=== PATIENT | female | born 1950 | race Caucasian/White ===

== ENCOUNTER 2018-08-17 10:21 | Emergency (ER) | payer MEDICARE, OTHER, MEDICAID ==
[~2018-08-17] VITALS: Ht 157.5 cm; Wt 77.1 kg
--- OUTSIDE RECORDS SUMMARY | ~2018-08-17 | XMS | Clinical Summary ---
Demographics + + + | Address | [address] | | | [place] [address] | + + + | Home Phone | | + + + | Preferred Language | Unknown | + + + | Marital Status | | + + + | Mandaeism Affiliation | Unknown | + + + | Race | Unknown | + + + | Ethnic Group | Unknown | + + + Author + + + | Author | [facility] [facility] | + + + | Organization | [facility] [employer] [facility] | + + + | Address | Unknown | + + + | Phone | Unavailable | + + + Support + + +---------+ + | Name | Relationship | Address | Phone | + + +---------+ + | Seymour Coreas | ECON | Unknown | | + + +---------+ + Care Team Providers + +------+ + | Care Pharmacy Technologist Name | Role | Phone | + +------+ + | Sean Stapleton DO | PP | | + +------+ + Allergies Not on File Current Medications + + +-------+---------+------+------+-------+ | Prescription | Sig. | Disp. | Refills | Star | End | Statu | | | | | | t | Date | s | | | | | | Date | | | + + +-------+---------+------+------+-------+ | levothyroxine | Take 88 mcg by mouth | | | | | Activ | | (SYNTHROID) 88 MCG | daily. | | | | | e | | tablet | | | | | | | + + +-------+---------+------+------+-------+ | lisinopril | Take 40 mg by mouth | | | | | Activ | | (ZESTRIL) 40 MG | daily. | | | | | e | | tablet | | | | | | | + + +-------+---------+------+------+-------+ | atorvastatin | Take 20 mg by mouth | | | | | Activ | | (LIPITOR) 20 MG | nightly. | | | | | e | | tablet | | | | | | | + + +-------+---------+------+------+-------+ | Calcium | Take 2 tablets by | | | | | Activ | | Carb-Cholecalciferol | mouth nightly. | | | | | e | | (CALCIUM 500 + D3) | | | | | | | | 500-600 MG-UNIT TABS | | | | | | | + + +-------+---------+------+------+-------+ | Cholecalciferol | Take 5,000 Units by | | | | | Activ | | 1000 units capsule | mouth daily. | | | | | e | + + +-------+---------+------+------+-------+ | Magnesium 500 MG | Take by mouth | | | | | Activ | | CAPS | daily. | | | | | e | + + +-------+---------+------+------+-------+ | B Complex-C (SUPER | Take 2 tablets by | | | | | Activ | | B COMPLEX PO) | mouth nightly. | | | | | e | + + +-------+---------+------+------+-------+ | Probiotic Product | Take by mouth | | | | | Activ | | (PROBIOTIC-10 PO) | nightly. | | | | | e | + + +-------+---------+------+------+-------+ | Garlic 1000 MG | Take 2,000 mg by | | | | | Activ | | CAPS | mouth nightly. | | | | | e | + + +-------+---------+------+------+-------+ | Coconut Oil 1000 | Take 2 tablets by | | | | | Activ | | MG CAPS | mouth nightly. | | | | | e | + + +-------+---------+------+------+-------+ | Coenzyme Q10 | Take 1,000 mg by | | | | | Activ | | (COQ10 PO) | mouth nightly. | | | | | e | + + +-------+---------+------+------+-------+ Active Problems + + + | Problem | Noted Date | + + + | PVC (premature ventricular contraction) | 05/22/2017 | + + + | Papillary thyroid carcinoma (HCC) | 07/09/2014 | + + + | S/P thyroidectomy | 06/09/2014 | + + + | Controlled type 2 diabetes mellitus without complication, without | 08/02/2011 | | long-term current use of insulin (HCC) | | + + + + + | Overview: Overview: | | On lantus 20 Units q hs | | Using sliding scale of humalog during the day. | + + + + + | Hyperlipidemia with target low density lipoprotein (LDL) | 08/02/2011 | | cholesterol less than 100 mg/dL | | + + + | Essential hypertension, benign | 04/23/2010 | + + + Family History + + +------+ + | Medical History | Relation | Name | Comments | + + +------+ + | Diabetes | Brother | | | + + +------+ + | Cancer | Mother | | colon | + + +------+ + | Diabetes | Mother | | | + + +------+ + | Emphysema | Mother | | | + + +------+ + | Diabetes | Sister | | | + + +------+ + + +------+--------+ + | Relation | Name | Status | Comments | + +------+--------+ + | Brother | | | | + +------+--------+ + | Mother | | | | + +------+--------+ + | Sister | | | | + +------+--------+ + Social History + +-------+ +--------+------+ | Tobacco Use | Types | Packs/Day | Years | Date | | | | | Used | | + +-------+ +--------+------+ | Never Smoker | | | | | + +-------+ +--------+------+ + +---+---+---+ | Smokeless Tobacco: | | | | | Never Used | | | | + +---+---+---+ + + +---------+ + | Alcohol Use | Drinks/We | oz/Week | Comments | | | ek | | | + + +---------+ + | No | | | | + + +---------+ + + + + | Sex Assigned at | Date Recorded | | | | + + + | Not on file | | + + + Last Filed Vital Signs + + + + | Vital Sign | Reading | Time Taken | + + + + | Blood Pressure | 118/70 | 05/22/2017 12:54 PM PST | + + + + | Pulse | 87 | 05/22/2017 12:54 PM PST | + + + + | Temperature | - | - | + + + + | Respiratory Rate | - | - | + + + + | Oxygen Saturation | 99% | 05/22/2017 12:54 PM PST | + + + + | Inhaled Oxygen | - | - | | Concentration | | | + + + + | Weight | 78.6 kg (173 lb 3.2 | 05/22/2017 12:54 PM PST | | | oz) | | + + + + | Height | 157.5 cm (5' 2") | 05/22/2017 12:54 PM PST | + + + + | Body Mass Index | 31.68 | 05/22/2017 12:54 PM PST | + + + + Plan of Treatment + + + + + | Health Maintenance | Due Date | Last Done | Comments | + + + + + | Diabetic Eye Exam | | | | | | 2 | | | + + + + + | Diabetic Foot Exam | | | | | | 2 | | | + + + + + | Hemoglobin A1c | | | | | | 2 | | | + + + + + | Microalbumin | | | | | Screening | 2 | | | + + + + + | Vaccine: | | | | | Dtap/Tdap/Td (1 - | 1 | | | | Tdap) | | | | + + + + + | Breast Cancer | | | | | Screening | 2 | | | | (Mammogram) | | | | + + + + + | Colon Cancer | | | | | Screening | 2 | | | | (Colonoscopy) | | | | + + + + + | Vaccine: Zoster (1 | | | | | of 2) | 2 | | | + + + + + | DEXA SCAN SCREENING | | | | | | 7 | | | + + + + + | Vaccine: | | | | | Pneumococcal 65+ | 7 | | | | High/Highest Risk (1 | | | | | of 2 - PCV13) | | | | + + + + + | Vaccine: Influenza | | | | | (#1) | 8 | | | + + + + + Results Not on filefrom Last 3 Months Insurance + +--------+ +------+-------+ + | Payer | Benefi | Subscriber | Type | Phone | Address | | | t Plan | ID | | | | | | / | | | | | | | Group | | | | | + +--------+ +------+-------+ + | MEDICARE | MEDICA | [id number] | | | [address] | | | RE | | | | [place] [address] | | | IP-OP | | | | | + +--------+ +------+-------+ + | [employer] [place] | MUTUAL | [id number] | | | | | | [place] | | | | | | | [place] | | | | | + +--------+ +------+-------+ + + +--------+ +--------+ + + | Guarantor Name | Accoun | Relation to | Date | Phone | Billing Address | | | t Type | Patient | of | | | | | | | | | | + +--------+ +--------+ + + | MYA YUSUF | Person | Self [birth year] | Home: | [address] | | | al/Fam | | 1951 | [phone] [place] | | | [place]ena | | | [phone] | [address] | + +--------+ +--------+ + +
--- OUTSIDE RECORDS SUMMARY | ~2018-08-17 | XMS | Clinical Summary ---
Demographics + + + | Address | [address] | | | [place] [address] | + + + | Home Phone | | + + + | Preferred Language | Unknown | + + + | Marital Status | Single | + + + | Scientologist Affiliation | Unknown | + + + | Race | White | + + + | Ethnic Group | Not or | + + + Author + + + | Author | [facility] | + + + | Organization | [facility] | + + + | Address | Unknown | + + + | Phone | Unavailable | + + + Support + + + + + | Name | Relationship | Address | Phone | + + + + + | ABDIEL QUILES | ECON | UNKNOWN | | | | | [place] [address] | | + + + + + Care Team Providers + +------+ + | Care Oil Well Gun Perforator Operator Name | Role | Phone | + +------+ + | Sean Stapleton DO | PP | | + +------+ + Source Comments SHERLYN is fully live on both [facility] Ambulatory and [facility] InPatient[facility] Allergies No Known Allergies Current Medications + + +--------+---------+------+------+-------+ | Prescription | Sig. | Disp. | Refills | Star | End | Statu | | | | | | t | Date | s | | | | | | Date | | | + + +--------+---------+------+------+-------+ | lisinopril 20 mg | TAKE ONE TABLET BY | | | 01/0 | | Activ | | oral tablet | MOUTH 2 TIMES DAILY | | | 02/06 | | e | | | FOR HYPERTENSION | | | 15 | | | + + +--------+---------+------+------+-------+ | Insulin Glargine | Inject under the | | | / | | Activ | | 100 unit/mL (3 mL) | skin (SUBC). | | | 6/20 | | e | | subcutaneous insulin | | | | 15 | | | | pen | | | | | | | + + +--------+---------+------+------+-------+ | Insulin Lispro, | Inject tid per | | | 05/20 | | Activ | | Human, 100 unit/mL | sliding scale. | | | 6/20 | | e | | subcutaneous insulin | | | | 15 | | | | pen | | | | | | | + + +--------+---------+------+------+-------+ | | Take by mouth. | | | 05/20 | | Activ | | HYDROcodone-acetamin | | | | 4/20 | | e | | ophen 5-325 mg oral | | | | 15 | | | | tablet | | | | | | | + + +--------+---------+------+------+-------+ | Lancets misc | by Does not apply | | | 12/3 | | Activ | | | route. | | | 06/08 | | e | | | | | | 14 | | | + + +--------+---------+------+------+-------+ | Blood Sugar | by Does not apply | | | 05/20 | | Activ | | Diagnostic (TRUETEST | route. | | | 11/06 | | e | | TEST STRIPS) strip | | | | 15 | | | + + +--------+---------+------+------+-------+ | Insulin [place], | 4 (four) times | | | 05/20 | | Activ | | Disposable, (SURE | daily. Use as | | | 11/06 | | e | | COMFORT PEN NEEDLE) | directed. | | | 15 | | | | 31 X 5/16 " needle | | | | | | | + + +--------+---------+------+------+-------+ | diphenhydrAMINE 25 | Take by mouth. | | | /2 | | Activ | | mg oral capsule | | | | 020 | | e | | | | | | 15 | | | + + +--------+---------+------+------+-------+ | VITAMIN B COMPLEX | Take by mouth. | | | | | Activ | | (B COMPLEX VITAMINS | | | | | | e | | ORAL) | | | | | | | + + +--------+---------+------+------+-------+ | CLONAZEPAM ORAL | Take by mouth. | | | | | Activ | | | | | | | | e | + + +--------+---------+------+------+-------+ | BECLOMETHASONE | Inhale. | | | | | Activ | | DIPROPIONATE (QVAR | | | | | | e | | INHL) | | | | | | | + + +--------+---------+------+------+-------+ | ALBUTEROL INHL | Inhale. | | | | | Activ | | | | | | | | e | + + +--------+---------+------+------+-------+ | benzonatate 100 mg | | | | 10/2 | | Activ | | oral capsule | | | | 0/20 | | e | | | | | | 15 | | | + + +--------+---------+------+------+-------+ | levothyroxine 88 | Take 1 tablet by | 90 | 3 | 04/0 | | Activ | | mcg oral tablet | mouth once daily. | tablet | | 3/20 | | e | | | | | | 17 | | | + + +--------+---------+------+------+-------+ | atorvastatin | Take by mouth. | | | | | Activ | | calcium | | | | | | e | | (ATORVASTATIN ORAL) | | | | | | | + + +--------+---------+------+------+-------+ Active Problems + + + | Problem | Noted Date | + + + | Post-surgical hypothyroidism | 03/25/2015 | + + + | Choking sensation | 03/25/2015 | + + + | Osteoporosis | 03/25/2015 | + + + | Vitamin D deficiency | 03/25/2015 | + + + | Papillary thyroid carcinoma (HCC) | 07/09/2014 | + + + Family History + + +------+ + | Medical History | Relation | Name | Comments | + + +------+ + | Stroke | Father | | | + + +------+ + | Cancer | Maternal | | Uterine | | | Grandmoth | | | | | er | | | + + +------+ + | Cancer | Mother | | Colon | + + +------+ + | Heart Disease | Mother | | | + + +------+ + | Heart Disease | Sister | | | + + +------+ + | Thyroid | Neg Hx | | | + + +------+ + + +------+--------+ + | Relation | Name | Status | Comments | + +------+--------+ + | Father | | | | + +------+--------+ + | Maternal Grandmother | | | | + +------+--------+ + | Mother | | | | + +------+--------+ + | Sister | | | | + +------+--------+ + Social History + +-------+ +--------+------+ | Tobacco Use | Types | Packs/Day | Years | Date | | | | | Used | | + +-------+ +--------+------+ | Former Smoker | | | | | + +-------+ +--------+------+ + +---+---+---+ | Smokeless Tobacco: | | | | | Never Used | | | | + +---+---+---+ + + | Comments: Smoked for one week | + + + + +---------+ + | Alcohol Use [...] + + + | Blood Pressure | 125/51 | 10/17/2017 2:51 PM PDT | + + + + | Pulse | 129 | 10/17/2017 2:51 PM PDT | + + + + | Temperature | - | - | + + + + | Respiratory Rate | - | - | + + + + | Oxygen Saturation | - | - | + + + + | Inhaled Oxygen | - | - | | Concentration | | | + + + + | Weight | 78.5 kg (173 lb) | 10/17/2017 2:51 PM PDT | + + + + | Height | 157.5 cm (5' 2") | 09/29/2015 2:33 PM PDT | + + + + | Body Mass Index | 31.64 | 10/17/2017 2:51 PM PDT | + + + + Plan of Treatment +--------+ + + + + | Date | Type | Specialty | Care Team | Description | +--------+ + + + + | 10/23/ | Appointment | | Beverly Anders MD | | | 2019 | | | [address] | | | | | | [place], | | | | | | [place] [address] | | | | | | [phone] | | | | | | | | +--------+ + + + + | 10/23/ | Office | | Beverly Anders MD | | | 2019 | Visit | | [address] | | | | | | [place], | | | | | | [place] [address] | | | | | | [phone] | | | | | | | | +--------+ + + + + + + + + + | Health Maintenance | Due Date | Last Done | Comments | + + + + + | Pneumococcal (Adult) | | | | | (1 of 2 - PCV13) | 7 | | | + + + + + | Influenza (Flu) | | | | | vaccination (#1) | 8 | | | + + + + + Results Not on filefrom Last 3 Months Insurance + +--------+ +--------+ + + | Payer | Benefi | Subscriber | Type | Phone | Address | | | t Plan | ID | | | | | | / | | | | | | | Group | | | | | + +--------+ +--------+ + + | MEDICARE | MEDICA | xxxxxxxxxxx | Medica | [phone]- | [id number] | | | RE [place] & | | re | [phone] | [place] [address] | | | B | | | | | + +--------+ +--------+ + + | [employer] [place] | MUTUAL | [phone] | Indemn | [phone]- | [employer] [place] | | MEDICARE SUPPL | OF | | ity | [address] | [place] | | | [place] | | | | [phone] | | | MEDICA | | | | | | | RE | | | | | | | SUPPL | | | | | + +--------+ +--------+ + + + +--------+ +--------+ + + | Guarantor Name | Accoun | Relation to | Date | Phone | Billing Address | | | t Type | Patient | of | | | | | | | | | | + +--------+ +--------+ + + | MYA YUSUF | Person | Self | [birth year] | Home: | [address] | | | al/Fam | | 1951 | [phone] | [place] | | | [place] | | | [phone] | [phone] | + +--------+ +--------+ + +
--- OUTSIDE RECORDS SUMMARY | ~2018-08-17 | XMS | Clinical Summary ---
Demographics + + + | Address | [address] | | | [place] [address] | + + + | Home Phone | | + + + | Preferred Language | Unknown | + + + | Marital Status | | + + + | Episcopalian Affiliation | Unknown | + + + | Race | Unknown | + + + | Ethnic Group | Unknown | + + + Author + + + | Author | [facility] | + + + | Organization | [facility] | + + + | Address | Unknown | + + + | Phone | Unavailable | + + + Support + + +---------+ + | Name | Relationship | Address | Phone | + + +---------+ + | Seymour Coreas | ECON | Unknown | | + + +---------+ + Care Team Providers + +------+ + | Care Ice Cream Mixer Name | Role | Phone | + [...] +------+-------+ + | MEDICARE | MEDICA | [id number] | | | [address] | | | RE | | | | [place] [address] | | | IP-OP | | | | | + +--------+ +------+-------+ + | [employer]UAL [employer] [place] | MUTUAL | [id number] | | | | | | [place] | | | | | | | [place] | | | | | + +--------+ [...] | | | [place] | | | [address] | [address] | + +--------+ +--------+ + +
--- OUTSIDE RECORDS SUMMARY | ~2018-08-17 | XMS | Clinical Summary ---
Demographics + + + | Address | [address] | | | [place] [address] | + + + | Home Phone | | + + + | Preferred Language | Unknown | + + + | Marital Status | Single | + + + | Baptism Affiliation | Unknown | + + + [...] | | | | | [place] [address] | | + + + + + Care Team Providers + +------+ + | Care Rodeo Performer Name | Role | Phone | + +------+ + | Sean Stapleton DO | PP | | + +------+ + Source Comments SHERLYN is fully live on both [facility] Ambulatory and [facility] InPatient.[facility] Allergies No Known Allergies Current Medications + [...] | | + + +--------+---------+------+------+-------+ | Insulin [place], | 4 (four) times | | | [...] | | | | | [place], | | | | | | [place] [address] | | | | | | [phone] | | | | | | | | +--------+ + + + + | 10/23/ | Office | | Beverly Anders MD | | | 2019 | Visit | | [address] | | | | | | [place], | | | | | | [place] [address] | | | | | | [phone] | | | | | | | [...] | re | [phone] | [place] [address] | | | B | | | | | + +--------+ +--------+ + + | [employer] [place] | MUTUAL | [phone] | Indemn | +17- | [employer] [place] | | MEDICARE SUPPL | OF | | ity | [address] | [address] | | | [place] | | | | [phone] | | | MEDICA | | | [...] | | al/Fam | | 1951 | [phone] | [place] | | | teena | | | [address] | [phone] | + +--------+ +--------+ + +
[~2018-08-17 10:21] MED LIST: ACETAMINOPHEN-1 EAC1 PO; ATORVASTATIN CA20 MG PO; CEPHALEXIN500 MG PO; LEVOTHYROXINE88 MCG PO; LISINOPRIL40 MG PO; NOVOLOG FL100 UNIT/1 SUB-Q
[2018-08-17] MEDS ORDERED: ZOFRAN4 MG PO (12:29)
--- NOTE | 2018-08-17 19:08 | EKG ---
[facility] [address] [facility] [place], [place] [address] Signed Sinus rhythm with premature atrial complexes Otherwise normal ECG No previous ECGs available Confirmed by WENDY ROCA DO ([id number]) on 08/17/2018 7:08:28 PM Electronically Signed By: WENDY ROCA DO 08/17/18 1908 PATIENT NAME: MYA YUSUF Electrocardiogram DATE OF : 52 PHYSICIAN: WENDY ROCA DO REPORT #: [id number] REPORT IS CONFIDENTIAL AND NOT TO BE RELEASED WITHOUT AUTHORIZATION
== END 2018-08-17 13:40 | disposition home or self-care (01) ==
LOC: ED 10:21
DX: K52.9 Noninfective gastroenteritis and colitis, unspecified (principal); E11.9 Type 2 diabetes mellitus without complications; Z88.8 Allergy status to other drugs, medicaments and biological substances; Z79.4 Long term (current) use of insulin; Z79.899 Other long term (current) drug therapy
CPT/HCPCS: 36415; 80053; 81001; 83690; 84484; 85025; 93005; 93010; 96374; 99284-25; J2405; J7030

== ENCOUNTER 2020-09-16 06:00 | Day surgery (SDC) | payer MEDICARE, OTHER, MEDICAID ==
[~2020-09-16] VITALS: Ht 157.5 cm; Wt 66.5 kg
[~2020-09-16 06:00] MED LIST changes: +GLUCOPHAGE500 MG PO; +IBU800 MG PO; +TRAMADOL HCL50 MG PO; +ZETIA10 MG PO; +ZOFRAN4 MG PO
[2020-09-16] MEDS ORDERED: TRAMADOL HCL50 MG PO (08:14)
--- NOTE | 2020-09-16 08:21 | NUR ---
09/16/20 0821 Genet Serrano 0814- PT ARRIVES TO PACU AROUSABLE TO VOICE. PT DOES NOT FOLLOW COMMANDS OR ANSWER QUESTIONS AT THIS TIME. NPA LEFT IN PLACE. RESP EVEN AND UNLABORED. OXYGEN SAT HIGH 90'S TO 100% ON 10L VIA MASK.
--- NOTE | 2020-09-16 08:33 | NUR ---
PT ALERT, ORIENTED AND IS READY FOR SURGERY. ALL QUESTIONS ASKED ANSWERED, PT REQUESTED PRAYER AND A WARM BLANKET. ESEQUIEL GARRISON PROVIDED BLANKET. WILL FOLLOW
--- NOTE | 2020-09-19 06:58 | OR ---
[facility] [address] [place], [place] [address] Signed DATE OF OPERATION: 09/16/2020 SURGEON: Terrell Esparza MD PREOPERATIVE DIAGNOSIS: Left carpal tunnel syndrome. POSTOPERATIVE DIAGNOSIS: Left carpal tunnel syndrome. PROCEDURE PERFORMED: Left carpal tunnel release. LIMO DRIVER: None. ANESTHESIA: [place] block. TOURNIQUET TIME: 20 minutes. BRIEF HISTORY: Mya is a 70-year-old female with bilateral carpal tunnel. She had undergone successful right release, wished to proceed with the left. Risks and benefits of operative treatment were discussed with her and she elected to proceed. DESCRIPTION OF PROCEDURE: Once consent was obtained, she was taken to the operating room. After adequate anesthesia, she was placed on operating table. All downside pressure points were well padded. The arm was prepped and draped in a standard sterile fashion. A 1.5 cm incision was placed through the distal wrist crease, carried through the skin and subcutaneous tissue. The palmaris longus was identified, retracted and protected. The transverse carpal ligament was identified under loupe magnification and dissected free of overlying soft tissue. It was then released proximally a cm and half distally to the distal extent. This was palpated using a [place] and found to be completely released. The wound was then copiously irrigated with antibiotic solution, closed with 3-0 nylon and injected with 8 mL 0.25% plain Marcaine. The wounds were dressed with Adaptic, gauze and Sincere. She tolerated the procedure well. All sponge, needle, and instrument counts were Electronically Signed By: TERRELL ESPARZA MD 09/19/20 0658 PATIENT NAME: MYA YUSUF OPERATIVE REPORT DATE OF : 52 REPORT #: [id number] PHYSICIAN: TERRELL ESPARZA MD PCP: AMBERLY OBRIEN MD REPORT IS CONFIDENTIAL AND NOT TO BE RELEASED WITHOUT AUTHORIZATION [address], [place] [address] Signed correct. Terrell Esparza MD BA/MODL /[id number] Copies: ~ Electronically Signed By: TERRELL ESPARZA MD 09/19/20 0658 PATIENT NAME: MYA YUSUF OPERATIVE REPORT DATE OF : 52 REPORT #: [id number] PHYSICIAN: TERRELL ESPARZA MD PCP: AMBERLY OBRIEN MD REPORT IS CONFIDENTIAL AND NOT TO BE RELEASED WITHOUT AUTHORIZATION
== END 2020-09-16 09:14 | disposition home or self-care (01) ==
LOC: DS 06:00
PROVIDERS: ATTEND Specialist
PROC: 01N50ZZ Release Median Nerve, Open Approach (ICD-10-PCS; principal; 2020-09-16 08:30)
DX: G56.02 Carpal tunnel syndrome, left upper limb (principal); J45.909 Unspecified asthma, uncomplicated; E11.9 Type 2 diabetes mellitus without complications; E89.0 Postprocedural hypothyroidism; M19.09 Primary osteoarthritis, other specified site; K21.9 Gastro-esophageal reflux disease without esophagitis; I10 Essential (primary) hypertension; Z88.8 Allergy status to other drugs, medicaments and biological substances; Z85.850 Personal history of malignant neoplasm of thyroid; Z86.14 Personal history of Methicillin resistant Staphylococcus aureus infection; Z77.22 Contact with and (suspected) exposure to environmental tobacco smoke (acute) (chronic); Z79.84 Long term (current) use of oral hypoglycemic drugs
CPT/HCPCS: J0690; J1100; J1885; J2250; J2405; J2765; J3010; J7121

== ENCOUNTER 2021-06-24 20:18 | Emergency (ER) | payer MEDICARE, OTHER, MEDICAID ==
[~2021-06-24] VITALS: Ht 157.5 cm; Wt 65.8 kg
[2021-06-24] MEDS ORDERED: MECLIZINE HCL12.5 MG PO (22:31)
== END 2021-06-24 22:50 | disposition home or self-care (01) ==
LOC: ED 20:18
DX: E87.1 Hypo-osmolality and hyponatremia (principal); E03.9 Hypothyroidism, unspecified; E11.9 Type 2 diabetes mellitus without complications; I10 Essential (primary) hypertension; Z88.8 Allergy status to other drugs, medicaments and biological substances; Z79.84 Long term (current) use of oral hypoglycemic drugs; Z79.899 Other long term (current) drug therapy
CPT/HCPCS: 36415; 70450; 80048; 81001; 85025; 99284-25; J7030

== ENCOUNTER 2021-09-08 05:32 | Day surgery (SDC) | payer MEDICARE, OTHER, MEDICAID ==
[~2021-09-08] VITALS: Ht 157.5 cm; Wt 62.3 kg
[~2021-09-08 05:32] MED LIST changes: +MECLIZINE HCL12.5 MG PO; +MULTI VITAMIN1 EACH PO
[2021-09-08] MEDS ORDERED: HYDROCODON-ACE1 EA11 PO (08:12)
[2021-09-08] MEDS ORDERED: CELECOXIB200 MG PO (08:12)
--- NOTE | 2021-09-08 08:15 | NUR ---
09/08/21 0815 Genet Serrano 0804- PT ARRIVES TO PACU REACTIVE TO STIMULI. PT IS VERY DROWSY AND FALLS BACK TO SLEEP WHEN NOT BEING STIMULATED. RESP EVEN AND UNLABORED. OXYGEN SAT HIGH 90'S TO 100% ON 6L VIA MASK. 0806- ICE PACK APPLIED TO PT'S LEFT FOREARM. 0812- PT REPOSITIONED IN BED AND HEAD OF BED ELEVATED. PT REPORTS NO PAIN OR NAUSEA. OXYGEN TITRATED OFF.
--- NOTE | 2021-09-08 08:57 | NUR ---
5235 PT BACK TO ROOM FROM PACU ALERT AND AWAKE SHOSHANA PAIN OR NAUSEA, PT TAKING SIPS OF WATER TOLERATES WELL. ANDERSON OLMSTEAD PLACED BETWEEN WARM BLANKETS CALL LIGHT WITHIN REACH. SHE REPORTS SHE IS SLEEPY ADVISED HER THAT SHE CAN SLEEP AND REST.
--- NOTE | 2021-09-08 09:03 | NUR ---
0900 PT REPORTS LT HAND IS STILL NUMB SHE DOES HAVE MINIMAL MOVEMENT WITH FINGERS ON LT HAND. HAND WARM AND PINK CAP REFILL LESS ONE SECOND. SHE DENIES PAIN.
--- NOTE | 2021-09-08 09:50 | NUR ---
PT RESTING COMFORABLY DENIES PAIN AND NAUSEA, DECLINE ANYTHING TO EAT BUT IS TAKING SIPS OF WATER TOLERATES WELL. HER LT HAND IS STILL NUMB FROM BLOCK. SHE IS NOT ABLE TO MOVE FINGERS, ICE IS PLACED AT LT ELBOW OVER NOELLE WRAP. FINGERS ON LT HAND ARE PINK AND WARM CAP REFILL IS LESS THAN ONE SECOND.
--- NOTE | 2021-09-08 10:18 | NUR ---
LPT TAKEN TO [place], FAMILY IN RM. FEEL CONFIDENT, WILL REMAIN FOR DC. GAVE ENCOURAGEMENT. WILL FOLLOW
--- NOTE | 2021-09-08 10:50 | NUR ---
1000 PT AMBULATED TO BATHROOM WITHOUT ASSIST. SHE WAS ABLE TO VOID, SHE REPORTS READINESS TO GO HOME, IV DC'D TIP IN TACT DISCHARGE INSTRUCTIONS GIVEN TO PT, SHE VOICED UNDERSTANDING. PT IS NOT ABLE TO MOVE FINGERS ON LT HAND DUE TO BLOCK, FINGERS ON LT HAND PINK AND WARM, CAP REFILL LESS THAN ONE SECOND.
--- NOTE | 2021-09-11 08:45 | OR ---
[facility] [address], [place] [address] Signed DATE OF OPERATION: 09/08/2021 SURGEON: Terrell Esparza MD PREOPERATIVE DIAGNOSIS: Ulnar neuritis, left. POSTOPERATIVE DIAGNOSIS: Ulnar neuritis, left. PROCEDURE PERFORMED: Left ulnar transposition, subcutaneous. FILM EDITOR SUPERVISOR: None. ANESTHESIA: General. BLOOD LOSS: None. TOURNIQUET TIME: 31 minutes. BRIEF HISTORY: Mya is a 71-year-old female with progressive worsening ulnar neuritis. She had numbness and tingling in the lateral aspect of her hand. Risks, benefits, and alternatives of operative treatment were discussed with her and she elected to proceed. Once consent was obtained, she was taken to the operating room. After adequate anesthesia, she was placed on operating room table with a hand table. The arm was prepped and draped in a standard sterile fashion. Sterile tourniquet was placed in the proximal arm. The arm was then exsanguinated using Esmarch bandage. Tourniquet inflated to 200 mmHg. A 3-inch incision was centered over the medial epicondyle. This was carried through skin and subcutaneous tissue and directly down onto the cubital tunnel. The cubital tunnel was opened on its proximal side carefully under loupe magnification. Identification of the ulnar nerve was then made. The tunnel was completely unroofed while carefully protecting the nerve. The nerve was then dissected free of its soft tissue bed. A vessel loop was placed around it to provide traction. Careful dissection of nerve on its underneath side to remove the vascular plexus was Electronically Signed By: TERRELL ESPARZA MD 09/11/21 0845 PATIENT NAME: MYA YUSUF OPERATIVE REPORT DATE OF : 52 REPORT #: [id number] PHYSICIAN: TERRELL ESPARZA MD PCP: AMBERLY OBRIEN MD REPORT IS CONFIDENTIAL AND NOT TO BE RELEASED WITHOUT AUTHORIZATION [facility] [address], [place] [address] Signed undertaken. The dissection was taken proximally 2 inches and distally 2 inches. It was then transposed anteriorly and the intermuscular septum was excised to allow a tension-free transposition. Once it was placed up into the anterior subcutaneous tissue space, the fascial sling was then developed and sutured around the nerve back to the subcutaneous skin creating a solid fascial sling. The nerve was freely moving at the end of this portion of the procedure. The subcutaneous tissue was then tacked down to the epicondyle and the wound was copiously irrigated. The space was then closed using 3-0 Vicryl. The subcutaneous tissue was closed with 3-0 Monocryl and the skin was closed with 3-0 Stratafix. The wound was then sealed with Dermabond and dressed with an Allevyn dressing, sterile cast padding, and a posterior splint. She tolerated the procedure well. All sponge, needle, and instrument counts were correct. Terrell Esparza MD BA/KRISTY /[id number] Copies: ~ Electronically Signed By: TERRELL ESPARZA MD 09/11/21 0845 PATIENT NAME: PARAMJITMYAAYE GAYY OPERATIVE REPORT DATE OF : 52 REPORT #: [id number] PHYSICIAN: TERRELL ESPARZA MD PCP: AMBERLY OBRIEN MD REPORT IS CONFIDENTIAL AND NOT TO BE RELEASED WITHOUT AUTHORIZATION
== END 2021-09-08 10:30 | disposition home or self-care (01) ==
LOC: DS 05:32
PROVIDERS: ATTEND Specialist
PROC: 01X40Z4 Transfer Ulnar Nerve to Ulnar Nerve, Open Approach (ICD-10-PCS; principal; 2021-09-08 07:00)
DX: G56.22 Lesion of ulnar nerve, left upper limb (principal); Z88.8 Allergy status to other drugs, medicaments and biological substances; I10 Essential (primary) hypertension; E03.9 Hypothyroidism, unspecified; E11.9 Type 2 diabetes mellitus without complications
CPT/HCPCS: 01710; 64417; 76942; J0690; J1100; J2001; J2250; J2405; J2704; J2795; J7121

== ENCOUNTER 2021-09-08 19:10 | Emergency (ER) | payer MEDICARE, OTHER, MEDICAID ==
[~2021-09-08] VITALS: Ht 157.5 cm; Wt 67.7 kg
[~2021-09-08 19:10] MED LIST changes: +CELECOXIB200 MG PO; +HYDROCODON-ACE1 EA11 PO
== END 2021-09-08 20:25 | disposition home or self-care (01) ==
LOC: ED 19:10
DX: R20.2 Paresthesia of skin (principal); G58.8 Other specified mononeuropathies; E03.9 Hypothyroidism, unspecified; E11.9 Type 2 diabetes mellitus without complications; I10 Essential (primary) hypertension; Z88.8 Allergy status to other drugs, medicaments and biological substances; Z79.899 Other long term (current) drug therapy; Z79.84 Long term (current) use of oral hypoglycemic drugs
CPT/HCPCS: 99283

== ENCOUNTER 2022-03-21 05:45 | Day surgery (SDC) | payer MEDICARE, OTHER ==
--- NOTE | 2022-03-15 09:48 | NUR ---
WAS TESTED ON 02/12/22 IN COVID SCREENING AND IT WAS POSTIVE, THEN SHE WENT TO PCP AND RETESTED AND WAS NEGATIVE FOR COVID. HAD FOOT SURGERY AND STICHES REMOVED AND DOING WELL AT THIS TIME. NO CHANGES INHER MEDICATIONS AT THIS TIME.
[~2022-03-21] VITALS: Ht 157.5 cm; Wt 66.4 kg
[~2022-03-21 05:45] MED LIST changes: +VENTOLIN HFA18 GM INH
[2022-03-21] MEDS ORDERED: IBU800 MG PO (06:15)
[2022-03-21] MEDS ORDERED: ONDANSETRON ODT8 MG PO (06:16)
[2022-03-21] MEDS ORDERED: FLOVENT DISKUS50 MCG INH (06:17)
--- NOTE | 2022-03-21 07:59 | NUR ---
03/21/22 0759 Lucía Sainz PATIENT IS AWAKE AND TALKING WITH ME. SHE IS TALKING ABOUT "GOING BACK TO WORK." PLAN OF CARE IS COMMUNICATED AND PATIENT VERBALIZES UNDERSTANDING. BLOOD PRESSURE IS SOFT. FLUID IS INCREASED TO BOLUS. WILL CONTINUE TO MONITOR.
--- NOTE | 2022-03-21 10:51 | NUR ---
PT IS ALERT, ORIENTED AND SEEMS VERY PREPARED FOR HER SCOPE. SHE HAS HAD A PREVIOUS SCOPE. ALL QUESTIONS ASKED ANSWERED. PT REQUESTED PRAYER, SHARED THAT SHE HAS GREAT ELEAZAR AND FEELS BLESSED. WILL FOLLOW NEEDED
--- NOTE | 2022-03-21 16:55 | OR ---
[facility] [address], [place] [address] Signed DATE OF OPERATION: 03/21/2022 SURGEON: Vega Powell MD PREOPERATIVE DIAGNOSES: 1. Personal history of colonic polyps in 2017 at age 66. 2. Mother with colon cancer in her 80s. POSTOPERATIVE DIAGNOSIS: Moderately poor bowel prep. PROCEDURE: Colonoscopy without biopsy. ESTIMATED BLOOD LOSS: None. INDICATIONS: Mya is a 71-year-old female, asked to see me for followup colonoscopy. We know her mother had colon cancer in her 80s. She reminded me of her postoperative nausea and vomiting. We helped her in 2017 at the age of 66 for some rectal bleeding. She had a tubulovillous adenomatous polyp removed at 15 cm. She also had a tubular adenoma in the distal right colon. In the meantime, her has . 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 She therefore asked to take a taxi or usually comes with her friend. She has no lower GI complaints. She talks about severe asthma requiring stem-cell treatment. Nevertheless, she did have both carpal tunnel surgeries and her ulnar nerve transposition with Dr. Esparza in the last year. She seemed to have done well. In the office, I had given her a pamphlet on colonoscopy. We discussed the nature of the test along with the risks including, but not limited to gas bloating, crampy abdominal pain, bleeding, perforation requiring surgery and missed diagnosis. We also reviewed the need for monitored anesthesia care given her advanced medical issues and her very frail nature. In fact, her functional status has declined significantly since I have seen her last. She had expressed understanding and wished to proceed. PROCEDURE NOTE: Mya was taken into our endoscopy suite and placed in the left lateral decubitus position. She was given monitored anesthesia care with propofol per our nurse senior storage engineer. A digital rectal exam was performed and this was unremarkable. She had good sphincter tone. Really no external hemorrhoids. No masses. The adult colonoscope had been introduced and advanced under direct visualization up into the cecum itself. Electronically Signed By: VEGA POWELL MD 03/21/22 1655 PATIENT NAME: MYA YUSUF OPERATIVE REPORT DATE OF : 52 REPORT #: [id number] PHYSICIAN: VEGA POWELL MD PCP: AMBERLY OBRIEN MD REPORT IS CONFIDENTIAL AND NOT TO BE RELEASED WITHOUT AUTHORIZATION [facility] [address], [place] [address] Signed It took a few minutes to get through the rectum, sigmoid colon and left colon because of her moderately poor bowel prep. There was too much particulate stool matter to suction through the scope. In that regard, she would need additional bowel prep in the future. Once we got into the proximal left colon above, it was much better. We could easily see the appendiceal orifice and ileocecal valve. The scope was then slowly withdrawn. We saw no pathology throughout her entire colon or rectum. It was difficult to see the anus on retroflexion of the scope. We did see some internal hemorrhoid columns as we withdrew the scope. After this, the gas had been suctioned out. Mya was taken into the recovery room in stable condition. Overall, she tolerated the procedure quite well. RECOMMENDATIONS: Mya is welcome to return in 5 years due to her family and personal history. However, once she is within 8 to 12 years of she can discontinue her endoscopies. Vega Powell MD ALB/MODL /[id number] cc: MD Vega Andersen MD Copies: AMBERLY OBRIEN DMD, ANDREW L MD ~ Electronically Signed By: VEGA POWELL MD 03/21/22 1655 PATIENT NAME: MYA YUSUF OPERATIVE REPORT DATE OF : 52 REPORT #: [id number] PHYSICIAN: VEGA POWELL MD PCP: AMBERLY OBRIEN MD REPORT IS CONFIDENTIAL AND NOT TO BE RELEASED WITHOUT AUTHORIZATION
== END 2022-03-21 08:25 | disposition home or self-care (01) ==
LOC: OPS 05:45 → DS 05:45 → OPS 07:30
PROVIDERS: ATTEND Colon & Rectal Surgery
PROC: 0DJD8ZZ Inspection of Lower Intestinal Tract, Via Natural or Artificial Opening Endoscopic (ICD-10-PCS; principal; 2022-03-21 07:30)
DX: Z09 Encounter for follow-up examination after completed treatment for conditions other than malignant neoplasm (principal); K64.8 Other hemorrhoids; E89.0 Postprocedural hypothyroidism; E11.319 Type 2 diabetes mellitus with unspecified diabetic retinopathy without macular edema; E11.22 Type 2 diabetes mellitus with diabetic chronic kidney disease; I12.9 Hypertensive chronic kidney disease with stage 1 through stage 4 chronic kidney disease, or unspecified chronic kidney disease; N18.30 Chronic kidney disease, stage 3 unspecified; E78.5 Hyperlipidemia, unspecified; E11.40 Type 2 diabetes mellitus with diabetic neuropathy, unspecified; E03.9 Hypothyroidism, unspecified; M81.0 Age-related osteoporosis without current pathological fracture; J45.40 Moderate persistent asthma, uncomplicated; Z86.010 Personal history of colon polyps; Z80.0 Family history of malignant neoplasm of digestive organs; Z79.4 Long term (current) use of insulin; Z88.8 Allergy status to other drugs, medicaments and biological substances
CPT/HCPCS: J2704